=== PATIENT | female | born 1935 | race Caucasian/White ===

== ENCOUNTER → 2017-01-16 | Day surgery (SDC) | payer MEDICARE, BC ==
[~2017-01-16] VITALS: Ht 157.5 cm; Wt 67.0 kg
[~2017-01-16] MED LIST: ASPI-630 PO; CALC600T4 PO; DILT180C2 PO; FAMOTIDINE 20 MG/2 ML VIAL ONE; HYDR-965 PO; HYDROcodone/APAP 7.5/325MG 1 TAB TABLET PO ONE; HYDROmorphone 2 MG/ML VIAL IV PRN; IV RINGERS,LACTATED 1000ML 1,000 ML IV SCH; LIDOCAINE 1% 1 ML SYRINGE. ID PRN; LIDOCAINE 1% 20 ML VIAL. ONE; LIDOCAINE 2% PF Vial for OR 5 ML VIAL. ONE; LOSA50TA2 PO; METO50TA2 PO; MORPHINE SULFATE 2 MG/ML DISP.SYRIN. IV PRN; MULT1TAB52 PO; ONDANSETRON PF 4 MG/2 ML VIAL. IV PRN; ONDANSETRON PF 4 MG/2 ML VIAL. ONE; PROCHLORPERAZINE 10 MG/2 ML VIAL. IV PRN; PROPOFOL 20 ML IV ONE; fentaNYL PF VIAL 100 MCG/2 ML VIAL IV PRN
--- NOTE | 2017-01-16 14:58 | DISCH ---
DISCHARGE INSTRUCTIONS Condition on Discharge Condition on Discharge: Stable Activity After Discharge Activity Instructions for Disc: Other, see below Other activity instructions: avoid hard grasp with left hand Weight Bearing Status after Di: As tolerated Diet after Discharge Diet after Discharge: Regular Wound Incision Care Wound/Incision Care: Ice to area for comfort Other wound/incision instructi: May remove dressing in 3 days may then get wet in shower Contacting the DR. after DC Call your doctor for: Concerns you may have Follow-Up Follow up with: Joshua 10-14 days MELIZA JAIN MD Jan 16, 2017 14:58
--- NOTE | 2017-01-16 15:54 | PDOC4 ---
Operative Note Operative Note Date of surgery: 01/16/2017 Preoperative diagnosis left long trigger finger Postoperative diagnosis same Procedure left long trigger finger release Surgeon: Joshua Anesthesia sedation with local Estimated blood loss 1 mL Complications none Operative indications patient is a elderly female with a left long trigger finger unresponsive to nonoperative management I gone over with her operative treatment options with the release and the possibility of infection nerve or blood vessel damage medical or other anesthetic consultations among others. She agrees to proceed having given informed consent Operative text: Patient was identified procedure verified patient placed in the supine position on the operating table after adequate amounts of sedation were administered the left upper extremity was prepped and draped in the standard sterile fashion with an arm tourniquet. After timeout was performed patient procedure identified and verified, the left hand was exsanguinated by Esmarch bandage tourniquet inflated to 250 motion mercury half percent plain Marcaine was instilled into the operative site and an incision was made along the distal palmar crease overlying the third flexor tendon. The tendon was visualized neurovascular bundles were protected medially and laterally and the tendon sheath and A1 chente were sharply divided eliminating the triggering. Irrigation carried out normal saline solution closure accomplished with nylon in a vertical mattress fashion sterile dressings were applied patient was returned to recovery room in stable condition having tolerated the procedure well MELIZA JAIN MD Jan 16, 2017 15:54
[2017-01-16 16:30] VITALS: BP 168/83
== END | disposition home or self-care (01) ==
LOC: SURG 11:31
PROVIDERS: ATTEND Orthopaedic Surgery
DX: M65.332 Trigger finger, left middle finger (principal); I10 Essential (primary) hypertension; K21.9 Gastro-esophageal reflux disease without esophagitis; Z87.39 Personal history of other diseases of the musculoskeletal system and connective tissue; Z87.891 Personal history of nicotine dependence
CPT/HCPCS: 26055; J0690; J2405; J2704; S0028; J2001

== ENCOUNTER → 2017-07-27 | Outpatient (CLI) | payer MEDICARE, BC | END | disposition home or self-care (01) | LOC: MRI 07:56 | DX: R41.3 Other amnesia (principal) | CPT/HCPCS: 70551 ==